=== PATIENT | male | born 1960 | race Native Hawaiian/Other Pacific Islander ===

== ENCOUNTER 2016-09-23 16:01 | Observation (INO) | payer OTHER ==
[2016-09-23] VITALS (20 sets, daily range): BP systolic 114–191; BP diastolic 65–125; TEMP 97.6–98.4; Ht 170.2 cm; Wt 95.7 kg
[~2016-09-23] VITALS: Ht 170.2 cm; Wt 95.7 kg
[~2016-09-23 16:01] MED LIST: APAP/HYDROCO1 TAB PO; DICL75TA4 PO; HYDR25TA60 PO; HYDR2TAB12 PO; HYDR4TAB12 PO
[2016-09-23 16:30] LABS: PLATELET COUNT 376 K/uL (142-355)
[2016-09-23 17:21] LABS: POTASSIUM 3.9 mmol/L (3.6-5.2); SODIUM 134 mmol/L (136-145)
[2016-09-23 17:34] LABS: PARTIAL THROMBOPLASTIN TIME 24.5 SECONDS (24.5-33.6)
--- NOTE | 2016-09-23 19:45 | NUR ---
RCD PT ALERT S/L INTACT ALERT /ORIENTED DENIES PAIN OR SOB
--- NOTE | 2016-09-23 20:30 | NUR ---
DOZING DENIES PAIN
--- NOTE | 2016-09-23 20:30 | NUR ---
ATE SOUP/CRACKER JUICE 02 AT 3L NO PAIN RESTINGWATCHING TV
--- NOTE | 2016-09-23 22:00 | NUR ---
RESTING, WATCHING TV. NO PAIN NOTED.
[2016-09-24] VITALS (18 sets, daily range): BP systolic 108–169; BP diastolic 56–94; TEMP 97.6–98.2
--- NOTE | 2016-09-24 00:30 | NUR ---
SPOKE WITH DR. FISCHER TO GIVE THE ASPIRN 325 PO.
--- NOTE | 2016-09-24 07:00 | NUR ---
REPORT FROM PM STAFF. PT RESTING IN LOW FOWLERS. DENIES PAIN.
[2016-09-24 08:40] LABS: PLATELET COUNT 346 K/uL (142-355)
[2016-09-24 09:02] LABS: POTASSIUM 3.5 mmol/L (3.6-5.2); SODIUM 133 mmol/L (136-145)
--- NOTE | 2016-09-24 09:30 | NUR ---
PT WITH NO C/O THIS AM, RESTING IN LOW FOWLERS. CHEST WITH BILATERAL COARSE EXP WHEEZES/COARSE UPPER LOBES.
--- NOTE | 2016-09-24 11:00 | NUR ---
DR MEJIA IN TO SEE PT. NEW ORDERS.PT DENIES CP. PT WITH NON PRODUCTIVE COUGH.
--- NOTE | 2016-09-24 13:15 | NUR ---
PT RESTING IN LOW FOWLERS AFTER FEEDING SELF LUNCH. DENIES CHEST PAIN AT THIS TIME.
--- NOTE | 2016-09-24 14:46 | NUR ---
PT RESTING IN LOW FOWLERS WTCHING TV. PT REUEST NICOTINE PATCH, REPORTED TO DR MEJIA.
--- NOTE | 2016-09-24 15:30 | NUR ---
PT TO CT VIA W/C.
--- NOTE | 2016-09-24 15:41 | NUR ---
PT TO CT VIA WC IN STABLE COND.
--- NOTE | 2016-09-24 15:49 | NUR ---
RECEIVED Pt. FROM ICU VIA W/C. ASSESSMENT COMPLETED.
--- NOTE | 2016-09-24 15:49 | NUR ---
PT TO RM [address] RADIOLOGY STAFF.
--- NOTE | 2016-09-24 15:50 | NUR ---
REPORT TO JELANI HARDIN RN.
[2016-09-25 00:28] VITALS: BP 149/79; TEMP 97.5
[2016-09-25 04:00] VITALS: BP 173/80; TEMP 97.6
[2016-09-25 08:00] VITALS: BP 180/95; TEMP 98
[2016-09-25 08:38] LABS: PLATELET COUNT 354 K/uL (142-355)
[2016-09-25 10:09] LABS: SODIUM 132 mmol/L (136-145)
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
--- NOTE | 2016-09-25 11:42 | NUR ---
AMA FORM SIGNED. FAMILY AT BEDSIDE.
--- NOTE | 2016-09-25 11:52 | NUR ---
PATIENT GIVEN PRESCRIPTIONS PER DR. MEJIA AND INSTRUCTED PATIENT ON USE. PATIENT STATES HE UNDERSTANDS AND WILL COME BACK FOR ANY PROBLEMS OR CONCERNS.IV REMOVED, PATIENT ESCORTED TO HOSPITAL EXIT AND DISCHARGED AMA.
== END 2016-09-25 11:52 | disposition home or self-care (01) ==
LOC: ED 16:01 → ICU 18:15 → MED/SURG 09-24 15:49
PROVIDERS: Emergency Medicine
DX: R07.89 Other chest pain (principal); J44.1 Chronic obstructive pulmonary disease with (acute) exacerbation; J98.11 Atelectasis; I48.91 Unspecified atrial fibrillation; I50.9 Heart failure, unspecified; F41.8 Other specified anxiety disorders
CPT/HCPCS: 36415; 80053; 82550; 83735; 83880; 84484; 85027; 85379; 85610; 85730; 87040; 93005; 94664; 94760; 96372; 96374; 96375; 99220; 99285; G0378; J1650; J1940; J2930

== ENCOUNTER 2016-12-14 22:51 | Observation (INO) | payer OTHER ==
[~2016-12-14] VITALS: Ht 170.2 cm; Wt 83.9 kg
[2016-12-14 23:16] VITALS: BP 145/93; TEMP 98.7
[2016-12-14 23:48] LABS: PLATELET COUNT 357 K/uL (142-355)
[2016-12-14 23:59] LABS: POTASSIUM 3.5 mmol/L (3.6-5.2); SODIUM 137 mmol/L (136-145)
[2016-12-15 00:11] LABS: PARTIAL THROMBOPLASTIN TIME 25.1 SECONDS (24.5-33.6)
[2016-12-15 09:22] VITALS: BP 191/98; TEMP 98.2; Ht 170.2 cm; Wt 83.9 kg
--- NOTE | 2016-12-15 09:32 | NUR ---
PT TO ROOM 1106 VIA WC FROM ER. IV INTACT TO R AC. ASSESSMENT COMPLETE. NAD NOTED. PT C/O BACK PAIN. STATES ITS A CHRONIC BACK PAIN. ORIENTED PT TO ROOM AND CONTROLS. PT VERBALIZED UNDERSTANDING.
--- NOTE | 2016-12-15 09:40 | NUR ---
PER ER- 3 BOLUS GIVEN IN ER PER SHIFT REPORT
--- NOTE | 2016-12-15 10:48 | NUR ---
PT REQUEST AMA FOR. PT STATES HE HAS TO LEAVE TO GET TO JOB. MARIANGEL LYLES LPN WITNESS. INSTRUCTED PT IMPORTANCE OF MONITORING HEART. PT REFUSES TO STAY. IV DC'D WITH CANNULA INTACT AND SITE CARE PROVIDED. INFORMED. PT AMBULATING IN HALLWAY WAITING ON DAUGHTER FOR RIDE
--- NOTE | 2016-12-15 10:56 | NUR ---
PT LEFT AMBULATORY AT THIS TIME. STATES DAUGHTER IS OUTSIDE FOR RIDE. NAD NOTED
== END 2016-12-15 10:52 | disposition left against medical advice (07) ==
LOC: ED 22:51 → MED/SURG 12-15 03:30
PROVIDERS: ADMIT Emergency Medicine
DX: R07.89 Other chest pain (principal); M54.5 Low back pain
CPT/HCPCS: 36415; 80053; 81000; 82550; 83880; 84484; 85027; 85610; 85730; 93005; 96361; 96372; 96374; 96375; 99220; 99284; G0378; J1650; J2270; J2405; J3490

== ENCOUNTER 2017-05-15 20:06 | Inpatient (IN) | payer OTHER ==
[2017-05-15] VITALS (7 sets, daily range): BP systolic 143–210; BP diastolic 80–144; TEMP 97.6
[~2017-05-15] VITALS: Ht 170.2 cm; Wt 93.1 kg
[2017-05-15 20:30] LABS: PLATELET COUNT 294 K/uL (142-355)
[2017-05-15 20:37] LABS: POTASSIUM 3.7 mmol/L (3.6-5.2); SODIUM 139 mmol/L (136-145)
[2017-05-15 21:08] LABS: PARTIAL THROMBOPLASTIN TIME 23.3 SECONDS (24.5-33.6)
[2017-05-16] VITALS (31 sets, daily range): BP systolic 113–175; BP diastolic 70–101; TEMP 97.6–97.8; Ht 170.2 cm; Wt 93.1 kg
[2017-05-16 06:21] LABS: PLATELET COUNT 270 K/uL (142-355)
[2017-05-16 06:45] LABS: POTASSIUM 3.6 mmol/L (3.6-5.2); SODIUM 140 mmol/L (136-145)
[2017-05-16] MEDS ORDERED: AMLO2.5T PO (12:39)
[2017-05-16] MEDS ORDERED: HYDR25TA60 PO (12:39)
[2017-05-16] MEDS ORDERED: ATEN25TA21 PO (12:41)
[2017-05-16] MEDS ORDERED: ALBU90AE13 INH (12:44)
[2017-05-16] MEDS ORDERED: CLON0.1T16 PO (12:49)
== END 2017-05-16 15:15 | DRG 313 ==
LOC: ED 20:06 → ICU 23:50
PROVIDERS: ADMIT Specialist
DX: R07.89 Other chest pain (principal); I16.0 Hypertensive urgency; F41.8 Other specified anxiety disorders; J44.9 Chronic obstructive pulmonary disease, unspecified; F32.89 Other specified depressive episodes
CPT/HCPCS: 36415; 80053; 82550; 82553; 84484; 85027; 85610; 85730; 93005; 94664; 94760; 96365; 96368; 99285; J1650; J2270; J2405; J3490

== ENCOUNTER 2017-05-21 19:25 | Outpatient (CLI) | payer OTHER ==
[~2017-05-21 19:25] MED LIST changes: +ALBU90AE13 INH; +AMLO2.5T PO; +ATEN25TA21 PO; +CLON0.1T16 PO
== END 2017-05-21 19:28 | disposition home or self-care (01) ==
LOC: AMB 19:25
DX: R07.89 Other chest pain (principal)
CPT/HCPCS: A0425; A0427

== ENCOUNTER 2017-05-21 19:31 | Observation (INO) | payer OTHER ==
[~2017-05-21] VITALS: Ht 170.2 cm; Wt 95.3 kg
[2017-05-21 19:40] VITALS: BP 166/97; TEMP 98.9
[2017-05-21 19:45] LABS: PLATELET COUNT 302 K/uL (142-355)
[2017-05-21 19:52] LABS: POTASSIUM 3.6 mmol/L (3.6-5.2); SODIUM 139 mmol/L (136-145)
[2017-05-21 20:00] VITALS: BP 164/85; BP 171/87; TEMP 98.7
[2017-05-21 20:02] LABS: PARTIAL THROMBOPLASTIN TIME 23.7 SECONDS (24.5-33.6)
[2017-05-21 23:35] VITALS: BP 164/85; TEMP 98.7; Ht 170.2 cm; Wt 95.3 kg
[2017-05-22 00:13] VITALS: BP 162/76; TEMP 97.6
[2017-05-22 04:00] VITALS: BP 168/92; TEMP 97.6
[2017-05-22 07:53] VITALS: BP 167/94; TEMP 97.5
[2017-05-22 09:32] LABS: PLATELET COUNT 278 K/uL (142-355)
[2017-05-22 09:47] LABS: POTASSIUM 3.7 mmol/L (3.6-5.2); SODIUM 140 mmol/L (136-145)
[2017-05-22 12:00] VITALS: BP 168/89; TEMP 97.8
[2017-05-22 16:00] VITALS: BP 161/91; TEMP 97.9
[2017-05-22 20:23] VITALS: BP 127/54; TEMP 97.5
[2017-05-23] VITALS: BP 129/66; TEMP 97.6
[2017-05-23 04:00] VITALS: BP 165/86; TEMP 97.5
[2017-05-23 06:13] LABS: POTASSIUM 4.1 mmol/L (3.6-5.2); SODIUM 135 mmol/L (136-145)
[2017-05-23 06:20] LABS: PLATELET COUNT 328 K/uL (142-355)
[2017-05-23 08:00] VITALS: BP 169/81; TEMP 97.6
[2017-05-23 12:00] VITALS: BP 171/76; TEMP 97.8
[2017-05-23 16:00] VITALS: BP 166/86; TEMP 97.9
--- NOTE | 2017-05-23 16:50 | NUR ---
D/C INSTRUCTIONS GIVEN TO PT AND DEPUTY NEHAL RAUSCH. IV D/C'D L AC 20G CATH TIP INTACT.
== END 2017-05-23 16:50 | disposition home or self-care (01) ==
LOC: ED 19:31 → MED/SURG 20:26
PROVIDERS: Emergency Medicine
DX: R07.89 Other chest pain (principal); J44.1 Chronic obstructive pulmonary disease with (acute) exacerbation
CPT/HCPCS: 36415; 80053; 81000; 82550; 83735; 84484; 85027; 85379; 85610; 85730; 93005; 93306; 94640; 94664; 94760; 96367; 96372; 96375; 99220; 99283; A9540; A9567; G0378; J1650; J2270; J2930

== ENCOUNTER 2017-05-27 15:14 | Emergency (ER) | payer OTHER ==
[~2017-05-27] VITALS: Ht 170.2 cm; Wt 95.3 kg
[2017-05-27 15:15] VITALS: TEMP 98.3
[2017-05-27] MEDS ORDERED: AMLO2.5T PO (15:28)
[2017-05-27 15:38] LABS: PLATELET COUNT 324 K/uL (142-355)
[2017-05-27 15:49] LABS: POTASSIUM 3.7 mmol/L (3.6-5.2); SODIUM 140 mmol/L (136-145)
[2017-05-27 16:07] VITALS: BP 170/88
== END 2017-05-27 16:07 | disposition home or self-care (01) ==
LOC: ED 15:14
DX: R07.89 Other chest pain (principal)
CPT/HCPCS: 36415; 80053; 82550; 84484; 85027; 96374; 99284; J2270

== ENCOUNTER 2017-05-27 16:14 | Outpatient (CLI) | payer OTHER | END 2017-05-27 16:44 | disposition short-term general hospital (02) | LOC: AMB 16:14 | DX: R07.89 Other chest pain (principal) | CPT/HCPCS: A0425; A0427 ==

== ENCOUNTER 2017-11-01 02:41 | Outpatient (CLI) | payer OTHER | END 2017-11-01 02:44 | disposition short-term general hospital (02) | LOC: AMB 02:41 | DX: R07.89 Other chest pain (principal); I10 Essential (primary) hypertension; R04.0 Epistaxis | CPT/HCPCS: A0425; A0427 ==

== ENCOUNTER 2017-11-01 02:50 | Emergency (ER) | payer OTHER ==
[~2017-11-01] VITALS: Ht 170.2 cm; Wt 88.5 kg
[2017-11-01 03:45] LABS: PLATELET COUNT 287 K/uL (142-355)
[2017-11-01 03:48] LABS: POTASSIUM 3.5 mmol/L (3.6-5.2); SODIUM 138 mmol/L (136-145)
[2017-11-01 04:05] LABS: PARTIAL THROMBOPLASTIN TIME 19.8 SECONDS (24.5-33.6)
[2017-11-01 04:34] VITALS: BP 166/86; TEMP 97.7
== END 2017-11-01 04:38 | disposition home or self-care (01) ==
LOC: ED 02:50
DX: R07.89 Other chest pain (principal); R04.0 Epistaxis
CPT/HCPCS: 80053; 82550; 82553; 84484; 85027; 85610; 85730; 93005; 99284

== ENCOUNTER 2017-11-10 21:01 | Outpatient (CLI) | payer OTHER | END 2017-11-10 21:03 | disposition short-term general hospital (02) | LOC: AMB 21:01 | DX: R07.89 Other chest pain (principal); R06.02 Shortness of breath | CPT/HCPCS: A0425; A0427 ==

== ENCOUNTER 2017-11-10 21:10 | Emergency (ER) | payer OTHER ==
[~2017-11-10] VITALS: Ht 170.2 cm; Wt 88.0 kg
[2017-11-10 21:42] LABS: PLATELET COUNT 265 K/uL (142-355)
[2017-11-10 21:53] LABS: POTASSIUM 3.4 mmol/L (3.6-5.2); SODIUM 140 mmol/L (136-145)
[2017-11-10 22:13] LABS: PARTIAL THROMBOPLASTIN TIME 23.2 SECONDS (24.5-33.6)
[2017-11-11 03:40] VITALS: BP 175/92; TEMP 97.9
== END 2017-11-11 03:43 | disposition short-term general hospital (02) ==
LOC: ED 21:10
PROVIDERS: Specialist
DX: R07.89 Other chest pain (principal); I10 Essential (primary) hypertension; I48.91 Unspecified atrial fibrillation
CPT/HCPCS: 36415; 80053; 82550; 82553; 84484; 85027; 85610; 85730; 93005; 96372; 96374; 96375; 96376; 99284; J1170; J1650; J2270; J2405; J3490

== ENCOUNTER 2017-11-11 03:50 | Outpatient (CLI) | payer OTHER | END 2017-11-11 05:30 | disposition short-term general hospital (02) | LOC: AMB 03:50 | DX: R07.89 Other chest pain (principal); I10 Essential (primary) hypertension; I48.91 Unspecified atrial fibrillation | CPT/HCPCS: A0425; A0429 ==

== ENCOUNTER 2022-02-20 15:36 | Emergency (ER) | payer OTHER ==
[~2022-02-20] VITALS: Ht 170.2 cm; Wt 90.7 kg
[2022-02-20 16:00] LABS: PLATELET COUNT 267 K/uL (142-355)
[2022-02-20 16:23] LABS: PARTIAL THROMBOPLASTIN TIME 23.6 SECONDS (24.5-33.6)
[2022-02-20 18:05] VITALS: BP 179/96; TEMP 98.7
== END 2022-02-20 18:05 | disposition short-term general hospital (02) ==
LOC: ED 15:36
PROVIDERS: Hospitalist
DX: I21.4 Non-ST elevation (NSTEMI) myocardial infarction (principal); I10 Essential (primary) hypertension; J44.1 Chronic obstructive pulmonary disease with (acute) exacerbation; J40 Bronchitis, not specified as acute or chronic; Z11.52 Encounter for screening for COVID-19
CPT/HCPCS: 36600; 80053; 82550; 82805; 83880; 84484; 85027; 85610; 85730; 87635; 93005; 94664; 94760; 96365; 96375; 96376; 99284; J0696; J2270; J2930; U0003